=== PATIENT | female | born 1960 | race Caucasian/White ===

== ENCOUNTER → 2016-06-15 | Outpatient (CLI) | payer OTHER ==
[~2016-06-15] MED LIST: ANEXSIA 7.5/3251 TA1 PO; NO MEDICATIONS
--- NOTE | ~2016-06-15 | MY11 ---
[facility] A Service of [facility] RADIOLOGY TEXT RESULTS PATIENT: EMILEE VAZQUEZ LOCATION: [facility] #: [id number] : 64 UNIT #: [id number] AGE: [address]: Matt Valentin MD SEX: F ORDER DR: [id number] [address] [id number] O MR#: [id number] Acc #: [id number] NAME: EMILEE VAZQUEZ : 1960 SEX: F STUDY DATE/TIME: 06/15/2016 9:34 UNIT: [facility] ROOM: STUDY DESCRIPTION: MY Mammogram Screening Dig Bucky Attending Physician: Matt Valentin M.D. Referring Physician: Matt Valentin M.D. Ordering Physician: Matt Valentin M.D. Primary Care Physician: Kenn Iqbal M.D. MEDICAL IMAGING REPORT This report is preliminary unless electronic signature is present. EXAM Digital screening mammogram, 06/15/2016 HISTORY 56-year-old woman positive family history, maternal aunt postmenopausal. Annual screening. COMPARISON Mammograms date to 12/12/2006 with most recent 09/20/2014. FINDINGS Digital imaging of each breast was completed utilizing screening protocol. Review includes FDA-approved CAD device. Breast structures are small. Fibroglandular parenchymal pattern appears stable in each breast. I see no interval occurring mass. There are no suspicious microcalcifications and no architectural deformity. IMPRESSION Negative mammogram. Annual screening recommended. Patients over the age of 40 are entered into a reminder system with target due date for the next mammogram. A result letter will also be sent to the patient. BIRADS: 1 Negative Dictated by... Carlos Manuel Powell M.D. THIS IS AN ELECTRONICALLY VERIFIED REPORT Carlos Manuel Powell M.D. at 06/15/2016 12:38 PM Ez [facility] A Service of [facility] RADIOLOGY TEXT RESULTS PATIENT: EMILEE VAZQUEZ LOCATION: [facility] #: [id number] : 64 UNIT #: [id number] AGE: [address]: Matt Valentin MD SEX: F ORDER DR: TD: 06/15/2016 10:06 JOB #: [id number] MEDICAL IMAGING REPORT Page 1 of 1
== END | disposition home or self-care (01) ==
LOC: SMAM 08:56
DX: Z12.31 Encounter for screening mammogram for malignant neoplasm of breast (principal); Z80.3 Family history of malignant neoplasm of breast
CPT/HCPCS: G0202